=== PATIENT | female | born 2005 | race Two or more races ===

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

== ENCOUNTER 2023-10-14 09:42 | Emergency (ER) | payer OTHER ==
[2023-10-14 10:14] VITALS: BP 129/73; BMI 23.5
[2023-10-14 11:45] LABS: BASO % 1.1 % (0-2.0); EOS % 2.9 % (0-4.5); HEMATOCRIT 38.5 % (32.4-45.2); HEMOGLOBIN 12.5 GM/dL (10.7-15.3); LYMPH % 24.6 % (8-40); MCH 27.9 pg (25.7-33.7); MCHC 32.5 g/dl (32.0-36.0); MEAN CELL VOLUME 85.8 fl (80-96); MEAN PLT VOLUME 8.6 fl (7.5-11.1); MONO % 6.4 % (3.8-10.2); PLATELET COUNT 285 10^3/uL (134-434); RBC 4.49 M/mm3 (3.60-5.2); RDW 13.8 % (11.6-15.6); WHITE BLOOD COUNT 7.4 K/mm3 (4.0-10.0)
[2023-10-14 11:47] LABS: EPI CELLS 24 /uL (0-25.1); HYALINE CASTS 0 /uL (0-3.1); URINE APPEARANCE CLEAR; URINE BACTERIA 319 /uL (0-1359); URINE BILIRUBIN NEGATIVE (NEGATIVE); URINE COLOR YELLOW; URINE GLUCOSE (UA) NEGATIVE (NEGATIVE); URINE KETONE NEGATIVE (NEGATIVE); URINE LEUK ESTERASE NEGATIVE (NEGATIVE); URINE NITRITE NEGATIVE (NEGATIVE); URINE PROTEIN NEGATIVE (NEGATIVE); URINE RBC 6 /uL (0-23.9); URINE UROBILINOGEN 0.2 mg/dL (0.2-1.0); URINE WBC 6 /uL (0-25.8)
[2023-10-14 12:08] LABS: POTASSIUM 3.7 mmol/L (3.5-5.1)
[2023-10-14 12:10] LABS: CALCIUM 9.2 mg/dL (8.5-10.1)
[2023-10-14 12:11] LABS: ALBUMIN 3.9 g/dl (3.4-5.0); BLOOD UREA NITROGEN 6.4 mg/dL (7-18)
[2023-10-14 12:14] LABS: CREATININE 0.6 mg/dL (0.55-1.3)
[2023-10-14 12:15] LABS: BILIRUBIN,TOTAL 0.3 mg/dL (0.2-1); TOT PROT 7.6 g/dl (6.4-8.2)
== END 2023-10-14 15:11 | disposition home or self-care (01) ==
LOC: JER 09:42
DX: O20.9 Hemorrhage in early pregnancy, unspecified (principal); Z3A.01 Less than 8 weeks gestation of pregnancy
CPT/HCPCS: 36415; 76817-TC; 80053; 81003; 82010; 84702; 85025; 86850; 86900; 86901; 87070; 87077; 87086; 87205; 87491; 87591; 99284-25

== ENCOUNTER 2024-01-05 21:40 | Emergency (ER) | payer OTHER ==
[2024-01-05 21:46] VITALS: BP 105/68; PULSE 58; RESP 17; TEMP 98.4; BMI 22.7
[2024-01-05] MEDS ORDERED: ONDANSETRON *ODT* 4 MG TABLET ONE (22:37)
[2024-01-05] MEDS ORDERED: ACETAMINOPHEN 325 MG TABLET (FP) ONE (22:37)
[2024-01-05] MEDS: ONDANSETRON *ODT* 4 MG TABLET SL ONE (22:53)
[2024-01-05] MEDS: ACETAMINOPHEN 325 MG TABLET (FP) PO ONE (23:06)
[2024-01-05 23:28] LABS: PH,URINE 6.5 (5.0-8.0); URINE APPEARANCE CLEAR; URINE BILIRUBIN NEGATIVE (NEGATIVE); URINE COLOR YELLOW; URINE GLUCOSE (UA) NEGATIVE (NEGATIVE); URINE KETONE NEGATIVE (NEGATIVE); URINE LEUK ESTERASE NEGATIVE (NEGATIVE); URINE NITRITE NEGATIVE (NEGATIVE); URINE PROTEIN NEGATIVE (NEGATIVE); URINE UROBILINOGEN 0.2 mg/dL (0.2-1.0)
== END 2024-01-06 02:00 | disposition home or self-care (01) ==
LOC: JER 21:40
DX: O26.892 Other specified pregnancy related conditions, second trimester (principal); R10.30 Lower abdominal pain, unspecified; R11.0 Nausea; R63.0 Anorexia; O99.612 Diseases of the digestive system complicating pregnancy, second trimester; K59.00 Constipation, unspecified; Z3A.18 18 weeks gestation of pregnancy
CPT/HCPCS: 76801-TC; 81003; 84703; 87086; 99284-25

== ENCOUNTER 2024-02-05 15:34 | Emergency (ER) | payer OTHER ==
[2024-02-05 15:47] VITALS: BP 121/63; PULSE 90; RESP 20; TEMP 98.4; BMI 22.7
[2024-02-05] MEDS ORDERED: ONDANSETRON 4 MG/2 ML VIAL ONE (16:38)
[2024-02-05] MEDS: LACTATED RINGERS SOLUTION 1000 ML INFUS.BAG IV ONE (16:55)
[2024-02-05] MEDS: ONDANSETRON 4 MG/2 ML VIAL IVPUSH ONE (16:55)
== END 2024-02-05 17:53 | disposition home or self-care (01) ==
LOC: JER 15:34
PROC: 3E033GC Introduction of Other Therapeutic Substance into Peripheral Vein, Percutaneous Approach (ICD-10-PCS; principal; 2024-02-05)
DX: O21.9 Vomiting of pregnancy, unspecified (principal); Z3A.18 18 weeks gestation of pregnancy
CPT/HCPCS: 99284-25